=== PATIENT | female | born 1980 | race Two or more races ===

== ENCOUNTER 2020-07-28 03:20 | Emergency (ER) | payer MEDICAID ==
[~2020-07-28] VITALS: Ht 152.4 cm; Wt 68.0 kg
[2020-07-28 03:21] VITALS: BP 134/70
--- NOTE | 2020-07-28 03:21 | NUR ---
ED Nurse Note: pt walked into ED from home c/o burning sensation in pelvic area for 1 week now. Pt denies pain n/v/d fever or chills. Denies painful or foul smelling urine. Pt states last menstrual cycle was Jul 22 and was normal. Pt denies current , denies trauma to area. Addendum: 07/28/20 at 0422 by ROSALIO ED Nurse Note: pt walked into ED from home c/o burning sensation in pelvic area for 1 week now. Pt denies pain n/v/d fever or chills. Denies painful or foul smelling urine. Pt states last menstrual cycle was Jun 18 2020 and was normal. Pt denies current , denies trauma to area
[2020-07-28] MEDS ORDERED: CEPHALEXIN500 MG ORAL (03:44)
[2020-07-28] MEDS ORDERED: PHENAZOPYRIDIN200 MG ORAL (03:44)
[2020-07-28] MEDS ORDERED: Phenazopyridine 200mg tab ORAL ONE (03:45)
[2020-07-28] MEDS ORDERED: Cephalexin 500mg cap ORAL ONE (03:45)
--- NOTE | 2020-07-28 03:45 | NUR ---
ED Nurse Note: urine sent to lab
--- NOTE | 2020-07-28 03:47 | Emergency Room Report ---
History of Present Illness General Chief Complaint: Pelvic Pain Source: Patient Present Illness HPI Patient is a 40-year-old female presents for increased suprapubic abdominal discomfort. Reports of increased burning sensation. Increased frequency of urination. Onset of symptoms approximate 1 week ago. Denies any vomiting or fever. Denies any vaginal discharge. Reports having suprapubic pain. Denies any worsening with ambulation. Reports of increased lower abdominal discomfort. Had menses approximate 06/17 patient denies any vomiting or upper abdominal pain. Allergies: Coded Allergies: No Known Allergies (Unverified , 07/28/20) COVID-19 Screening Contact w/high risk pt: No Experienced COVID-19 symptoms?: No COVID-19 Testing performed PAINTER MIRROR: No COVID-19 Testing Source: CURATIVE Patient History Past Medical History: see triage record Last Menstrual Period: 07/22/20 Now: No Reviewed Nursing Documentation: PMH: Agreed; PSxH: Agreed Nursing Documentation-PMH Past Medical History: No Stated History Review of Systems All Other Systems: negative except mentioned in HPI Physical Exam Vital Signs Date Time Temp Pulse Resp B/P (MAP) Pulse Ox O2 Delivery O2 Flow Rate FiO2 07/28/20 03:21 97.9 88 20 134/70 (91) 98 Room Air General Appearance: well appearing, no apparent distress, alert, GCS 15 Head: normocephalic, atraumatic ENT: hearing grossly normal, normal voice Neck: full range of motion, supple Respiratory: no respiratory distress, speaking full sentences Gastrointestinal: normal inspection, normal bowel sounds, tenderness - Supra pubic Genitourinary: normal inspection, no CVA tenderness Musculoskeletal: no calf tenderness Neurologic: alert, motor strength/tone normal, wine manager III-XII nml as tested, oriented x3, normal gait Psychiatric: normal inspection, judgement/insight normal, mood/affect normal Skin: no rash Medical Decision Making Diagnostic Impression: Primary Impression: Urinary tract infection Additional Impression: ER Course Patient presented for dysuria. Differential diagnosis include was not limited to urinary tract infection, ectopic , gastroenteritis, among others. Patient has a benign exam and does not appear to require any imaging or laboratory testing at this time. Patient's history is consistent with a urinary infection. She has cloudy urine. Patient was given Pyridium as well as Keflex. Patient does not show any evidence of bacteremia at this time. Laboratory testing showed positive for . Urinalysis showed some evidence of urinary infection. Per patient's last menstrual period she is approximately 5 weeks and 6 days.Patient was given oral antibiotics. Pelvic ultrasound showed intrauterine gestational sac. Patient advised to follow-up with [facility] for recheck. She advised to return if she had increased dizziness worsening pain or other concerns. This medical record is generated with [employer] weight loss counselor software. There may be some weight loss counselor discrepancies related to use of this software Labs Test 07/28/20 03:53 07/28/20 04:40 Urine Color Pale yellow Urine Appearance Cloudy Urine pH 5 (4.5-8.0) Urine Specific [place] 1.020 (1.005-1.035) Urine Protein 1+ (NEGATIVE) Urine Glucose (UA) Negative (NEGATIVE) Urine Ketones Negative (NEGATIVE) Urine Blood Negative (NEGATIVE) Urine Nitrite Negative (NEGATIVE) Urine Bilirubin Negative (NEGATIVE) Urine Urobilinogen Normal MG/DL (0.0-1.0) Urine Leukocyte Esterase 3+ (NEGATIVE) Urine RBC 5-10 /HPF (0 - 2) Urine WBC Tntc /HPF (0 - 2) Urine Squamous Epithelial Cells Many /LPF (NONE/OCC) Urine Bacteria Many /HPF (NONE) Urine Yeast Moderate /HPF (NONE) Urine HCG, Qualitative Positive (NEGATIVE) White Blood Count 7.6 K/UL (4.8-10.8) Red Blood Count 4.28 M/UL (4.20-5.40) Hemoglobin 12.8 G/DL (12.0-16.0) Hematocrit 36.5 % (37.0-47.0) Mean Corpuscular Volume 85 FL (80-99) Mean Corpuscular Hemoglobin 29.9 PG (27.0-31.0) Mean Corpuscular Hemoglobin Concent 35.0 G/DL (32.0-36.0) Red Cell Distribution Width 14.1 % (11.6-14.8) Platelet Count 252 K/UL (150-450) Mean Platelet Volume 8.1 FL (6.5-10.1) Neutrophils (%) (Auto) 56.6 % (45.0-75.0) Lymphocytes (%) (Auto) 33.5 % (20.0-45.0) Monocytes (%) (Auto) 7.4 % (1.0-10.0) Eosinophils (%) (Auto) 1.6 % (0.0-3.0) Basophils (%) (Auto) 1.0 % (0.0-2.0) Last Vital Signs Date Time Temp Pulse Resp B/P (MAP) Pulse Ox O2 Delivery O2 Flow Rate FiO2 07/28/20 03:21 97.9 88 20 134/70 (91) 98 Room Air Status: improved Disposition: HOME, SELF-CARE Condition: Stable Scripts Cephalexin* (KEFLEX*) 500 Mg Capsule 500 MG ORAL EVERY 6 HOURS, #28 CAP Prov: Corey Raya MD 07/28/20 Phenazopyridine Hcl* (PYRIDIUM*) 200 Mg Tablet 200 MG ORAL THREE TIMES A DAY, #14 TAB 0 Refills Prov: Corey Raya MD 07/28/20 Referrals: NOT CHOSEN IPA/,REFERRING (PCP) Patient Instructions: Urinary Tract Infection Additional Instructions: Follow up with your doctor for recheck. Return if worse. Corey Raya MD Jul 28, 2020 03:47
[2020-07-28 03:57] LABS: BILIRUBIN, URINE NEGATIVE (NEGATIVE); COLOR,URINE PALE YELLOW; GLUCOSE, URINE (UA) NEGATIVE (NEGATIVE); KETONES,URINE NEGATIVE (NEGATIVE); LEUKOCYTE ESTERASE ,URINE 3+ (NEGATIVE); NITRITE,URINE NEGATIVE (NEGATIVE); PH,URINE 5 (4.5-8.0); PROTEIN,URINE 1+ (NEGATIVE); UROBILINOGEN,URINE NORMAL MG/DL (0.0-1.0)
[2020-07-28 04:14] LABS: APPEARANCE,URINE CLOUDY
--- NOTE | 2020-07-28 04:44 | NUR ---
ED Nurse Note: blood sent to lab, US tech called.
--- NOTE | 2020-07-28 04:55 | NUR ---
ED Nurse Note: pt went to US accompanied by US tech. Pt in stable condition.
[2020-07-28 04:58] LABS: EOSINOPHILS % (AUTO) 1.6 % (0.0-3.0); HEMATOCRIT 36.5 % (37.0-47.0); HEMOGLOBIN 12.8 G/DL (12.0-16.0); LYMPHOCYTES % (AUTO) 33.5 % (20.0-45.0); MEAN CORPUSCULAR VOLUME 85 FL (80-99); MONOCYTES % (AUTO) 7.4 % (1.0-10.0); NEUTROPHILS % (AUTO) 56.6 % (45.0-75.0); PLATELET COUNT 252 K/UL (150-450); RED BLOOD COUNT 4.28 M/UL (4.20-5.40); RED CELL DISTRIBUTION WIDTH 14.1 % (11.6-14.8); WHITE BLOOD COUNT 7.6 K/UL (4.8-10.8)
[2020-07-28 05:17] LABS: ANION GAP 7 mmol/L (5-15); BLOOD UREA NITROGEN 13 mg/dL (7-18); CALCIUM 8.8 MG/DL (8.5-10.1); CARBON DIOXIDE 26 MMOL/L (21-32); CHLORIDE 103 MMOL/L (98-107); CREATININE 0.8 MG/DL (0.55-1.30); POTASSIUM 3.6 MMOL/L (3.5-5.1); SODIUM 136 MMOL/L (136-145)
[2020-07-28 05:21] LABS: ALANINE AMINOTRANSFERASE 33 U/L (12-78); ALBUMIN 3.5 G/DL (3.4-5.0); ALBUMIN/GLOBULIN RATIO 0.9 (1.0-2.7); ALKALINE PHOSPHATASE 84 U/L (46-116); ASPARTATE AMINO TRANSFERASE 26 U/L (15-37); BILIRUBIN,TOTAL 0.3 MG/DL (0.2-1.0)
--- NOTE | 2020-07-28 05:55 | NUR ---
ED Nurse Note: Pt back from US in stable condition.
--- NOTE | 2020-07-28 06:00 | NUR ---
ED Nurse Note: Warm blankets provided. Fluids offered, but refused. No complaints from pt at the moment.
--- NOTE | 2020-07-28 06:26 | Diagnostic Imaging Report ---
EXAM: US First Trimester , Transabdominal and Transvaginal CLINICAL HISTORY: ABD PAIN TECHNIQUE: Real-time transabdominal and transvaginal obstetrical ultrasound of the maternal pelvis and a first trimester with image documentation. Transvaginal imaging was used for better evaluation of the fetus and adnexa. COMPARISON: No relevant prior studies available. FINDINGS: LMP: 06/17/2020, corresponding to a 5 week 6 day age. Uterus/cervix: The uterus is retroflexed. It is diffusely heterogeneous and measures approximately 8.7 x 6.1 x 5.8 cm. There is an anechoic area within the endometrium at the fundus, likely a gestational sac. It measures 7 x 5 x 6 mm there is no visible yolk sac. Ovaries: The left ovary measures 2.0 x 1.3 x 2.1 cm. The right ovary measures 1.4 x 1.3 x 1.9 cm. No mass. Free fluid: There is a small amount of free fluid in the cul-de-sac. IMPRESSION: There appears to be an intrauterine gestational sac with a mean gestational sac size of 6 mm. A yolk sac is not seen but this may be due to the very early gestational age. This could still represent a normal, very early IUP. Correlation with serial beta-hCG levels is recommended to assess viability, and follow-up ultrasound if clinically indicated. Normal ovaries-no evidence of ovarian torsion.
[2020-07-28 06:37] VITALS: BP 128/65
--- NOTE | 2020-07-28 06:37 | NUR ---
ER DISCHARGE NOTE: Patient is cleared to be discharged per ERMD, pt is aox4, on room air, with stable vital signs. pt was given dc and prescription instructions, pt was able to verbalize understanding, pt id band and iv site removed without complications. pt is able to ambulate with steady gait. pt took all belongings.
[2020-07-28 09:55] LABS: INR 0.9 (0.9-1.1)
== END 2020-07-28 06:37 | disposition home or self-care (01) ==
LOC: EMR 03:32
DX: O23.41 Unspecified infection of urinary tract in pregnancy, first trimester (principal); Z3A.01 Less than 8 weeks gestation of pregnancy
CPT/HCPCS: 36415; 76801; 76817; 80053; 81003; 81025; 83690; 84702; 85025; 85610; 85730; 86900; 86901; 87086; 87181; Z7502; 99284